=== PATIENT | female | born 1955 | race Caucasian/White ===

== ENCOUNTER → 2020-04-01 12:06 | Outpatient (CLI) | payer OTHER, SELFPAY ==
--- NOTE | ~2020-04-01 | DEXA_ITS ---
Bone Density Report Name: Madalyn Ortiz Age: 64 Sex: Female Ethnicity: White Date of : 1955 Indication: postmenopausal; screening for osteoporosis; rheumatoid arthritis; Referring Provider: Yudith, Lise Delarosa Study: Bone densitometry was performed. Exam Date: April 01, 2020 Accession number: [id number] Bone Density: Region BMD T-score Z-score Classification AP Spine (L1-L4) 1.043 0.0 1.7 Normal Femoral Neck (Left) 0.734 -1.0 0.5 Normal Total Hip (Left) 0.906 -0.3 0.9 Normal Femoral Neck (Right) 0.795 -0.5 1.0 Normal Total Hip (Right) 0.917 -0.2 1.0 Normal Total Hip Mean 0.912 -0.3 1.0 Normal World Health Organization criteria for BMD impression classify patients as: Normal (T-score at or above -1.0), Osteopenia (T-score between -1.0 and -2.5), or Osteoporosis (T-score at or below -2.5). 10-year Fracture Risk: FRAX not reported because: All T-scores for Spine Total, Hip Total, Femoral Neck at or above -1.0 Previous Exams: Region Exam Age BMD T-score BMD Change BMD Change Date g/cm2 vs Baseline vs Previous AP Spine(L1-L4) 04/01/2020 64 1.043 0.0 0.017 0.017 06/07/2011 55 1.026 -0.2 -0.001 -0.014 01/27/2010 54 1.040 -0.1 0.013 0.013 10/24/2007 52 1.027 -0.2 Total Hip(Left) 04/01/2020 64 0.906 -0.3 -0.016 -0.011 06/07/2011 55 0.917 -0.2 -0.005 0.015 01/27/2010 54 0.902 -0.3 -0.020 -0.020 10/24/2007 52 0.922 -0.2 Total Hip(Right) 04/01/2020 64 0.917 -0.2 -0.014 -0.005 06/07/2011 55 0.921 -0.2 -0.009 -0.013 01/27/2010 54 0.935 -0.1 0.004 0.004 10/24/2007 52 0.930 -0.1 *Denotes significance at 95% confidence level, LSC for AP Spine = 0.022 g/cm2, LSC for Total Hip = 0.027 g/cm2 Clinical Information Provided by Patient: Has rheumatoid arthritis Patient maximum height was 63 Menopause Age: 50 Drinks caffeinated beverages Onset of menses at age 14 Number of children 3 Missed period for more than 6 months in a row Impression: The patient has normal bone mass. No significant bone loss was observed. Discussion: BONE DENSITY IS ABOVE THE MINIMUM DESIRABLE LEVEL AT ALL SKELETAL SITES TESTED. This patient?s bone mineral density is above the minimum desirable level (T-score -1.0 or better) at all sites measured.
== END ==
PROVIDERS: Visit Provider Nurse Practitioner Obstetrics & Gynecology
DX: Z78.0 Asymptomatic menopausal state (principal)
CPT/HCPCS: 77080

== ENCOUNTER → 2021-01-19 09:47 | Outpatient (CLI) | payer OTHER, SELFPAY ==
--- NOTE | ~2021-01-19 | US_ITS ---
US abdomen complete EXAMINATION: US Abdomen Complete INDICATION: Left upper quadrant pain. Diabetes. History of cholecystectomy. PROCEDURE: Realtime High Resolution abdomen ultrasound. COMPARISON: Ultrasound dated 01/11/2012 FINDINGS: Gallbladder is surgically absent. Common bile duct measures 3 mm. Liver echotexture within normal limits without focal mass. Pancreas within normal limits. Pancreati c tail is obscured by bowel gas. Spleen is unremarkeable. Renal echotexture is within normal limits bilaterally without hydronephrosis, contour deforming mass or renal stone. Right kidney measures 9.5 cm. Left kidney measures 9.2 cm. Visualized aspects of the aorta and IVC are within normal limits. Portal vein is patent. No sonograph ic Bryan's sign indicated by the technologist. IMPRESSION: 1: Unremarkable abdominal ultrasound postcholecystectomy. Reviewed, dictated and finalized at location A.
== END ==
PROVIDERS: PCP Family Medicine Adolescent Medicine; Visit Provider Family Medicine Adolescent Medicine
DX: R10.12 Left upper quadrant pain (principal)
CPT/HCPCS: 76700

== ENCOUNTER 2021-04-05 02:18 | Day surgery (SDC) | payer OTHER, SELFPAY ==
[2021-03-24 14:18] VITALS: BMI 24.7
[2021-04-05 07:55] VITALS: BP 114/67; PULSE 91; RESP 20; TEMP 35.9; O2SAT 98; BMI 24.7
[2021-04-05] MEDS: LACTATED RINGERS 1,000 ML 150 ML IV CONT (08:10)
[2021-04-05 08:13] LABS: Glucose Point of Care 123 mg/dl (65-105)
--- NOTE | 2021-04-05 08:24 | WPDANESEPPF ---
Anes - Initial Pre Proc Eval Procedure: Operation Date: 04/05/21 08:30 Proposed Procedures p Esophagogastroduodenoscopy & Screening Colonoscopy - Jere Gaines MD Date/Time: 04/05/21 08:24 Surgeon: Jere Gaines MD Pre Op Diagnosis: R10.12 Lt upper quadrant pain, family hx colon ca Patient Data Age: 65 Gender: F Height: 1.57 m Weight: 61.5 kg Last Vital Signs Temp 96.7 F L 04/05/21 07:55 Pulse 91 04/05/21 07:55 Resp 20 04/05/21 07:55 BP 114/67 04/05/21 07:55 Pulse Ox 98 04/05/21 07:55 Allergies Allergy/AdvReac Type Severity Reaction Status Date / Time psyllium [From Hydrocil] AdvReac Unknown Dizziness Verified 04/05/21 07:54 Home Medications Medication Instructions Recorded Confirmed Type canagliflozin 50 mg-metformin 1 tablet PO BID 03/16/21 03/24/21 History 1,000 mg tablet Laboratory Tests 04/05/21 08:04 POC Capillary Glucose 123 mg/dl H mg/dl (65-105) Patient hx anesthesia problems: none Family hx anesthesia problems: none PMFSH Past Medical History Medical History (Updated 04/05/21 @ 08:21 by Nilton De La O MD) Arthritis Diabetes Family History Family History (Updated 04/01/14 @ 07:13 by DOCTOR UNKNOWN) Sibling Family history of arthritis Family history of heart disease in male family member before age 55 Father Family history of malignant neoplasm Mother Family history of heart disease in male family member before age 55 Social History Social History Alcohol intake: unknown Substance use: never Substance use type: does not use Living arrangements: with family Gender identity (if verbalized by the patient): Female Spiritual care concerns: No Anes - Eval Final PreProcedure Day of Procedure 04/05/21 08:24 Patient weight: normal Heart: regular rate and rhythm Lungs: clear to auscultation Airway: Mallampati scale class II Neurological: alert and oriented Last oral intake: >/= 8 hours ASA classification: II Emergent: no Anesthetic plan: proceed Anesthesia type and monitoring: general GIVS and standard monitoring Informed Consent: The patient's anesthetic plan and its attendant risks and benefits were discussed with the patient/family/POA. Questions were solicited and answers provided to the satisfaction of the patient/family/POA.
--- NOTE | 2021-04-05 08:31 | WPDHPUPDATE1 ---
History and Physical Update Update Date/Time: 04/05/21 08:31 History and Physical has been reviewed, including an updated exam of the patient. There are NO changes in the patient's condition. Risks, benefits, and alternatives have been discussed and questions answered. Patient agrees to proceed with procedure.
[2021-04-05] MEDS: BENZOCAINE (*SP) 60 ML SPRAY CAN (HURRICAINE) 1 SPRAY MUCOUS MEM (08:47)
--- NOTE | 2021-04-05 08:52 | SUR.OPER ---
Addendum entered by Teetee Sutton RN 04/05/21 08:59: colonoscopy started at 0856 Original Note: egd ended at 0851 colonoscopyn
[2021-04-05 09:10] VITALS: BP 100/59; PULSE 78; RESP 20; O2SAT 97
[2021-04-05 09:20] VITALS: BP 95/58; PULSE 78; RESP 20; O2SAT 100
[2021-04-05 09:30] VITALS: BP 99/58; PULSE 72; RESP 20; O2SAT 99
== END 2021-04-05 09:49 | disposition home or self-care (01) ==
PROVIDERS: PCP Family Medicine Adolescent Medicine; Visit Provider Internal Medicine Gastroenterology
PROC: 0DJ08ZZ Inspection of Upper Intestinal Tract, Via Natural or Artificial Opening Endoscopic (ICD-10-PCS; CPT 43235; principal; 2021-04-05 08:30)
DX: Z12.11 Encounter for screening for malignant neoplasm of colon (principal); Z80.0 Family history of malignant neoplasm of digestive organs; K21.00 Gastro-esophageal reflux disease with esophagitis, without bleeding; E11.9 Type 2 diabetes mellitus without complications; Z79.84 Long term (current) use of oral hypoglycemic drugs
CPT/HCPCS: 43235; 45378; 82948; J2704; J7120

== ENCOUNTER 2024-12-29 09:17 | Outpatient (CLI) | payer MEDICARE, SELFPAY ==
--- NOTE | ~2024-12-29 | DEXA_ITS ---
Bone Density Report Name: MIGUEL ANGEL PADILLA Age: 69 Sex: Female Ethnicity: White Date of : 1955 Indication: postmenopausal; screening for osteoporosis; height loss; Referring Provider: JUSTUS HERNANDEZ Study: Bone densitometry was performed. Exam Date: December 29, 2024 Accession number: [id number] Bone Density: Region BMD T-score Z-score Classification AP Spine(L1-L4) 1.012 -0.3 1.7 Normal Femoral Neck (Left) 0.736 -1.0 0.7 Normal Total Hip (Left) 0.886 -0.5 1.0 Normal Femoral Neck (Right) 0.782 -0.6 1.2 Normal Total Hip (Right) 0.902 -0.3 1.1 Normal Total Hip Mean 0.894 -0.4 1.1 Normal World Health Organization criteria for BMD impression classify patients as: Normal (T-score at or above -1.0), Osteopenia (T-score between -1.0 and -2.5), or Osteoporosis (T-score at or below -2.5). 10-year Fracture Risk: FRAX not reported because: All T-scores for Spine Total, Hip Total, Femoral Neck at or above -1.0 Previous Exams: -- Region Exam Age BMD T-score BMD Change BMD Change Date g/cm2 vs Baseline vs Previous -- AP Spine (L1-L4) 12/29/2024 69 1.012 -0.3 -1.4% -3.0%* 04/01/2020 64 1.043 0.0 1.6% 1.7% 06/07/2011 55 1.026 -0.2 -0.1% -1.4% 01/27/2010 54 1.040 -0.1 1.3% 1.3% 10/24/2007 52 1.027 -0.2 Total Hip(Left) 12/29/2024 69 0.886 -0.5 -3.9%* -2.2% 04/01/2020 64 0.906 -0.3 -1.7% -1.2% 06/07/2011 55 0.917 -0.2 -0.5% 1.6% 01/27/2010 54 0.902 -0.3 -2.1% -2.1% 10/24/2007 52 0.922 -0.2 Total Hip(Right) 12/29/2024 69 0.902 -0.3 -3.1%* -1.6% 04/01/2020 64 0.917 -0.2 -1.5% -0.5% 06/07/2011 55 0.921 -0.2 -1.0% -1.4% 01/27/2010 54 0.935 -0.1 0.5% 0.5% 10/24/2007 52 0.930 -0.1 -- *Denotes significance at 95% confidence level, LSC for AP Spine = 0.022 g/cm2, LSC for Total Hip = 0.027 g/cm2 Clinical Information Provided by Patient: Has used the following medications: Calcium Patient maximum height was 63 Menopause Age: 50 No regular weight bearing exercise Drinks caffeinated beverages Onset of menses at age 13 Number of children 3 Impression: The patient has normal bone mass. The BMD for the AP Spine (L1-L4) decreased, changing by -3.0% since the last DXA exam. Discussion: BONE DENSITY IS ABOVE THE MINIMUM DESIRABLE LEVEL AT ALL SKELETAL SITES TESTED. This patient?s bone mineral density is above the minimum desirable level (T-score -1.0 or better) at all sites measured. The patient should follow a healthful lifestyle (good nutrition with adequate calcium and vitamin D, and appropriate weight-bearing exercise). Follow-Up: Consider repeating this study in 3 to 4 years to reassess this patient's status, or sooner if there is some new clinical indication. Reported by: JOSEPHINE on 12/29/2024 9:52:00 AM. Reviewed, dictated and finalized at location A.
== END 2024-12-29 09:18 | disposition home or self-care (01) ==
LOC: MICIMG 09:18
PROVIDERS: PCP Family Medicine Adolescent Medicine; Visit Provider Family Medicine Adolescent Medicine
DX: Z78.0 Asymptomatic menopausal state (principal)
CPT/HCPCS: 77080

== ENCOUNTER → 2025-07-26 15:20 | Outpatient (CLI) | payer MEDICARE, SELFPAY ==
--- NOTE | ~2025-07-26 | XR_ITS ---
XR knee LT min 4V 07/26/2025 15:33 Indication: Left knee pain Procedure: 4 views left knee Comparison: No prior studies for comparison. Findings: There is mild tricompartment osteoarthritis of the left knee. No fracture, subluxation or dislocation. No significant joint effusion. No foreign bodies. Impression: 1: Mild tricompartment osteoarthritis. Reviewed, dictated and finalized at location O. ATHLETE Impression: 1: Mild tricompartment osteoarthritis.
== END ==
LOC: EXPCRAD 15:21
PROVIDERS: PCP Family Medicine; Visit Provider Family Medicine
DX: M17.12 Unilateral primary osteoarthritis, left knee (principal)
CPT/HCPCS: 73564